=== PATIENT | male | born 1960 | race Hispanic/Latino ===

== ENCOUNTER 2019-01-15 10:24 | Emergency (ER) | payer OTHER, SELFPAY ==
[2019-01-15] MEDS ORDERED: ATIVAN IV STA (11:13)
[2019-01-15] MEDS ORDERED: XYLOCAINE CARDIAC IV ONE (11:13)
[2019-01-15] MEDS ORDERED: TORADOL IV ONE (11:13)
--- NOTE | 2019-01-15 11:20 | Emergency Department Report ---
ED General Adult HPI - General Chief complaint: Fall Stated complaint: BACK PAIN Time Seen by Provider: 01/15/19 10:59 Source: patient, EMS (ems notes not available at time of chart dictation), RN notes reviewed Mode of arrival: Stretcher Limitations: Physical Limitation - History of Present Illness Initial comments: This is a 58-year-old gentleman. The patient is not known to this provider previously. The patient presents to the emergency room with the complaint of right posterior hamstring pain, after mechanical slip, fall 3 days ago while at work. Patient reports being on the second rung from the floor on a ladder this past Tuesday, 3 days ago, reports slipping, and having a left-sided his body hit the wall. He reports that his right knee hit the wall first, that his right thigh, then right thorax, and an shoulder. He did not hit his head. He did not hit his neck. 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 He reports walking around over the weekend, although with some difficulty, secondary to right posterior hamstring pain. He presents to the ER today with with worsened pain, mostly on her right lateral hip, and right posterior hamstring. This pain is burning, aching, crampy and sharp, constant, worsens with palpation, range of motion, decreases with rest, and radiates distally. He makes no complaint of headache, neck pain, chest pain, abdominal pain, shortness of breath, he denies left lower extremity pain, and he makes no complaint of bladder or bowel retention or incontinence or saddle anesthesia. He reports that he was able to walk yesterday. He is difficulty weightbearing today secondary to pain. -: Gradual, days(s) Location: right, lower extremity Radiation: extremity Severity scale (0 -10): 9 Quality: aching Consistency: constant Improves with: rest Worsens with: movement - Related Data Previous Rx's Medication Instructions Recorded Last Taken Type Acetaminophen [Tylenol Arthritis] 650 mg PO Q6HR PRN #30 tablet.er 01/15/19 Unknown Rx Ibuprofen [Motrin] 600 mg PO Q8H PRN #30 tablet 01/15/19 Unknown Rx Methocarbamol [Robaxin TAB] 1,500 mg PO TID PRN #30 tab 01/15/19 Unknown Rx Allergies Allergy/AdvReac Type Severity Reaction Status Date / Time No Known Allergies Allergy Unverified 04/07/15 11:50 ED Review of Systems ROS: Stated complaint: BACK PAIN Other details as noted in HPI Constitutional: denies: fever Eyes: denies: eye discharge ENT: denies: epistaxis Respiratory: denies: cough Cardiovascular: denies: chest pain Genitourinary: denies: dysuria Musculoskeletal: arthralgia, myalgia Neurological: denies: weakness, numbness, paresthesias Psychiatric: anxiety ED Past Medical Hx - Past Medical History Previous Medical History?: Yes Additional medical history: Left inguinal hernia - Social History Smoking Status: Never Smoker Substance Use Type: None - Medications Home Medications: Home Medications Medication Instructions Recorded Confirmed Last Taken Type Acetaminophen [Tylenol Arthritis] 650 mg PO Q6HR PRN #30 tablet.er 01/15/19 Unknown Rx Ibuprofen [Motrin] 600 mg PO Q8H PRN #30 tablet 01/15/19 Unknown Rx Methocarbamol [Robaxin TAB] 1,500 mg PO TID PRN #30 tab 01/15/19 Unknown Rx ED Physical Exam - General Limitations: Physical Limitation General appearance: alert, anxious - Head Head exam: Present: atraumatic, normocephalic - Eye Eye exam: Present: normal appearance, EOMI. Absent: nystagmus - ENT ENT exam: Present: normal exam, normal orophraynx, mucous membranes moist, normal external ear exam - Neck Neck exam: Present: normal inspection, full ROM. Absent: tenderness, meningismus - Respiratory Respiratory exam: Present: normal lung sounds bilaterally. Absent: respiratory distress - Cardiovascular Cardiovascular Exam: Present: regular rate, normal rhythm, normal heart sounds. Absent: bradycardia, tachycardia, irregular rhythm, systolic murmur, diastolic murmur, rubs, gallop - GI/Abdominal GI/Abdominal exam: Present: soft. Absent: distended, tenderness, guarding, rebound, rigid, pulsatile mass - Rectal Rectal exam: Present: deferred - Extremities Exam Extremities exam: Present: normal inspection, full ROM, tenderness (there is right posterior hamstring tenderness. The muscular compartments are soft. There is no redness, pus or streaking), other (2+ pulses noted in the bilateral upper, lower extremities. Compartments soft. No long bony tenderness. The pelvis is stable.). Absent: pedal edema, joint swelling, calf tenderness - Back Exam Back exam: Present: normal inspection, full ROM. Absent: tenderness, CVA tenderness (R), paraspinal tenderness, vertebral tenderness - Neurological Exam Neurological exam: Present: alert (5/5 strength bilateral plantar flexors, plantar extenders, 5 out of 5 strength bilateral extensor hallucis longus. Downgoing plantar reflexes bilaterally.), other (Extraocular movements intact. Tongue midline. No facial droop. Facial sensation intact to light touch in the V1, V2, V3 distribution bilaterally. 5 and 5 strength in 4 extremities.. Sensation is intact to light touch in 4 extremities.). Absent: motor sensory deficit - Psychiatric Psychiatric exam: Present: anxious - Skin Skin exam: Present: warm, dry, intact, normal color. Absent: rash ED Course Vital Signs 01/15/19 01/15/19 01/15/19 10:36 10:39 10:45 Temperature 97.3 F L Pulse Rate 73 Respiratory 18 Rate Blood Pressure 112/73 Blood Pressure 106/78 [Left] O2 Sat by Pulse 99 99 97 Oximetry 01/15/19 01/15/19 01/15/19 11:00 11:15 11:30 Temperature Pulse Rate Respiratory Rate Blood Pressure 120/66 122/73 129/73 Blood Pressure [Left] O2 Sat by Pulse 97 94 95 Oximetry 01/15/19 01/15/19 01/15/19 11:45 12:00 12:15 Temperature Pulse Rate 61 57 L Respiratory 16 21 Rate Blood Pressure 125/85 131/81 130/76 Blood Pressure [Left] O2 Sat by Pulse 92 96 94 Oximetry 01/15/19 12:30 Temperature Pulse Rate 52 L Respiratory 20 Rate Blood Pressure 123/70 Blood Pressure [Left] O2 Sat by Pulse 92 Oximetry - Reevaluation(s) Reevaluation #1: 01/15/19 11:21 Differential diagnosis, including but not limited to: Sprain, strain, fracture, dislocation Assessment and plan: 58-year-old gentleman status post reported mild minor blunt traumatic injury while at work 3 days ago, now with worsening pain, which is reproducible, without evidence of neurovascular disruption. Patient likely experiencing the natural history of mild blunt trauma. I have recommended that patient contact his employer or baggage handling supervisor, and report the incident, as this is a work-related incident. We will treat the patient's pain aggressively. I doubt a fracture, or dislocation, we will obtain plain films of the pelvis and femur. Patient will be given crutches, weightbearing as tolerated in the right lower extremity, and he will need to follow up with outpatient physical therapy, physiatry, for further evaluation, management. Reevaluation #2: 01/15/19 12:29 X-ray of the right femur, pelvis, negative for acute disease. Patient sleeping comfortably in no acute distress. Vital signs remained stable. Patient will be discharged at this point in time. ED Medical Decision Making - Lab Data Vital Signs 01/15/19 10:39 Temperature 97.3 F L Pulse Rate 73 Respiratory 18 Rate Blood Pressure 106/78 [Left] O2 Sat by Pulse 99 Oximetry Critical care attestation.: If time is entered above; I have spent that time in minutes in the direct care of this critically ill patient, excluding procedure time. ED Disposition Clinical Impression: Right hamstring muscle strain Disposition: DC-01 TO HOME OR SELFCARE Is pt being admited?: No Does the pt Need Aspirin: No Condition: Stable Instructions: Muscle Strain (ED) Additional Instructions: Rest, avoid heavy lifting, and avoid strenuous physical activities. Take the pain medications as needed/directed. Rest, and avoid heavy lifting, strenuous physical activities. Weightbearing as tolerated, use the crutches as directed. I recommend that patient contact his baggage handling supervisor or employer, and reports the incident since the patient reports that this incident happened at work. Patient will likely need to participate in rehabilitation, physical therapy of the affected lower extremity, and therefore may be entitled to Worker's Compensation. However, the patient needs to discuss this with his employer to clarify whether or not he is entitled to Worker's Compensation benefits. Alternatively, the patient may follow-up with the listed pain specialist or orthopedist's, full referral to outpatient physical therapy. Pain typically gets worse before gets better, and painful likely take weeks to months to completely improved, resolved. Prescriptions: Ibuprofen [Motrin] 600 mg PO Q8H PRN #30 tablet PRN Reason: Pain Methocarbamol [Robaxin TAB] 1,500 mg PO TID PRN #30 tab PRN Reason: Pain Acetaminophen [Tylenol Arthritis] 650 mg PO Q6HR PRN #30 tablet.er PRN Reason: Pain Referrals: MCKAYLA TOMAS MD [Staff Physician] - 3-5 Days VELMA GREENFIELD MD [Staff Physician] - 3-5 Days [facility] [Provider Group] - 3-5 Days Forms: Work/School Release Form(ED)
--- NOTE | 2019-01-15 12:53 | XRay Report ---
AP PELVIS: HISTORY: pain. AP view of the pelvis shows normal pelvic contour and soft tissues. The hips are symmetric and within normal limits as are the sacroiliac joints. IMPRESSION: Normal pelvis.
--- NOTE | 2019-01-15 12:53 | XRay Report ---
RIGHT FEMUR: HISTORY: Leg pain fall. AP and lateral views of the femur demonstrate normal mineralization and contours for this patient's age. No destructive changes are noted and the adjacent soft tissues are normal. IMPRESSION: Normal right femur.
[2019-01-16 18:46] VITALS: BP 123/70
== END 2019-01-15 13:00 | disposition home or self-care (01) ==
LOC: ED 10:24
DX: M79.18 Myalgia, other site (principal); T14.8XXA Other injury of unspecified body region, initial encounter; W19.XXXA Unspecified fall, initial encounter; Y93.89 Activity, other specified; Y92.89 Other specified places as the place of occurrence of the external cause; Y99.8 Other external cause status
CPT/HCPCS: 72170; 73552; 96374; 96375; 99284; J1885; J2001; J2060

== ENCOUNTER 2019-02-22 08:39 | Emergency (ER) | payer OTHER, SELFPAY ==
[2019-02-22 08:48] VITALS: BP 125/71
[2019-02-22] MEDS ORDERED: TORADOL IM ONE (09:15)
--- NOTE | 2019-02-22 09:23 | Emergency Department Report ---
ED Lower Extremity HPI - General Chief Complaint: Extremity Injury, Lower Stated Complaint: R LEG PAIN/R HIP PAIN Time Seen by Provider: 02/22/19 09:09 Source: patient Mode of arrival: Ambulatory Limitations: No Limitations - History of Present Illness Initial Comments: Patient is 58 years old male with no significant past medical history. Patient presented to the ER complaining of right hip and right thigh pain since his last fall. Patient stated that he was seen here and evaluated. I reviewed his record patient had a right hip x-ray and right femur x-ray which was normal. Patient stated that pain is not going away. Patient did not follow-up with primary care physician. Patient currently denying any weakness, numbness or tingling sensation. No bowel or bladder incontinence. No fever. Patient denied chest pain. MD Complaint: hip injury, thigh injury - Related Data Previous Rx's Medication Instructions Recorded Last Taken Type Acetaminophen [Tylenol Arthritis] 650 mg PO Q6HR PRN #30 tablet.er 01/15/19 Unknown Rx Ibuprofen [Motrin] 600 mg PO Q8H PRN #30 tablet 01/15/19 Unknown Rx methOCARBAMOL [Robaxin TAB] 1,500 mg PO TID PRN #30 tab 01/15/19 Unknown Rx Allergies Allergy/AdvReac Type Severity Reaction Status Date / Time No Known Allergies Allergy Verified 02/22/19 08:48 ED Review of Systems ROS: Stated complaint: R LEG PAIN/R HIP PAIN Other details as noted in HPI Comment: All other systems reviewed and negative Constitutional: denies: chills, fever Respiratory: denies: cough, orthopnea, shortness of breath, SOB with exertion Cardiovascular: denies: chest pain, palpitations Gastrointestinal: denies: abdominal pain, nausea, vomiting ED Past Medical Hx - Past Medical History Previous Medical History?: Yes Additional medical history: Left inguinal hernia - Surgical History Past Surgical History?: Yes Additional Surgical History: hernia - Social History Smoking Status: Former Smoker Substance Use Type: None - Medications Home Medications: Home Medications Medication Instructions Recorded Confirmed Last Taken Type Acetaminophen [Tylenol Arthritis] 650 mg PO Q6HR PRN #30 tablet.er 01/15/19 Unknown Rx Ibuprofen [Motrin] 600 mg PO Q8H PRN #30 tablet 01/15/19 Unknown Rx methOCARBAMOL [Robaxin TAB] 1,500 mg PO TID PRN #30 tab 01/15/19 Unknown Rx ED Physical Exam - General Limitations: No Limitations General appearance: alert, in no apparent distress - Head Head exam: Present: atraumatic, normocephalic, normal inspection - Eye Eye exam: Present: normal appearance, PERRL - ENT ENT exam: Present: normal exam, normal orophraynx, mucous membranes moist - Neck Neck exam: Present: normal inspection, full ROM. Absent: tenderness, meningismus, lymphadenopathy, thyromegaly - Respiratory Respiratory exam: Present: normal lung sounds bilaterally - Cardiovascular Cardiovascular Exam: Present: regular rate, normal heart sounds - GI/Abdominal GI/Abdominal exam: Present: soft. Absent: distended, tenderness, guarding, rebound - Extremities Exam Extremities exam: Present: normal inspection, full ROM, tenderness (tenderness to the right gluteal region.), normal capillary refill. Absent: calf tenderness - Back Exam Back exam: Present: normal inspection - Neurological Exam Neurological exam: Present: alert, CN II-XII intact, normal gait - Skin Skin exam: Present: warm, intact, normal color ED Course Vital Signs 02/22/19 08:42 Temperature 97.2 F L Pulse Rate 98 H Respiratory 16 Rate Blood Pressure 125/71 O2 Sat by Pulse 99 Oximetry Critical care attestation.: If time is entered above; I have spent that time in minutes in the direct care of this critically ill patient, excluding procedure time. ED Disposition Clinical Impression: Right hip pain Disposition: DC-01 TO HOME OR SELFCARE Is pt being admited?: No Condition: Stable Instructions: Contusion in Adults (ED) Referrals: TRISH PERSAUD MD [Primary Care Provider] - 3-5 Days Forms: Work/School Release Form(ED)
== END 2019-02-22 09:34 | disposition home or self-care (01) ==
LOC: ED 08:39
DX: M25.551 Pain in right hip (principal); M79.651 Pain in right thigh; Z87.891 Personal history of nicotine dependence
CPT/HCPCS: 96372; 99282; J1885

== ENCOUNTER 2019-03-15 12:04 | Emergency (ER) | payer OTHER, SELFPAY ==
--- NOTE | 2019-03-15 12:28 | Emergency Department Report ---
Blank Doc - Documentation Documentation: This is a 58-year-old male that presents with acute on chronic right hip pain. Stated had injury 2 months ago. Denies any new injuries. Stated has not followed up with orthopedic. Xrays has been done. This initial assessment/diagnostic orders/clinical plan/treatment(s) is/are subject to change based on patient's health status, clinical progression and re- assessment by fellow clinical providers in the ED. Further treatment and workup at subsequent clinical providers discretion. Patient/guardians urged not to elope from the ED as their condition may be serious if not clinically assessed and managed. Initial orders include: 1- Patient sent to [facility] for further evaluation and treatment
[2019-03-15 12:29] VITALS: BP 143/85
[2019-03-15] MEDS ORDERED: DECADRON IM ONE (13:48)
[2019-03-15] MEDS ORDERED: NORCO 5/325 PO ONE (13:49)
--- NOTE | 2019-03-15 13:49 | Emergency Department Report ---
ED Lower Extremity HPI - General Chief Complaint: Extremity Injury, Lower Stated Complaint: R SIDE LEG/HIP PAIN Time Seen by Provider: 03/15/19 12:26 Source: patient Mode of arrival: Ambulatory Limitations: No Limitations - History of Present Illness Initial Comments: This is a 58-year-old male presents to the emergency room for right hip pain radiating to calf for 2 months. Patient states he was seen here and referred to an orthopedic surgeon in [place] who can't see him until 2 months. Patient states he is unable to sit right buttock due to pain. He is currently use crutches to ambulate. He reports pain as sharp radiating pain. He denies recent injury, swelling, warmth to area, weakness, change in urinary or bowel pattern. MD Complaint: leg injury Onset/Timin -: month(s) Injury: Hip: Right, Leg: Right Type of Injury: unknown Place: home Severity: severe Severity scale (0 -10): 10 Improves With: nothing Worsens With: weight bearing, other (sitting) Context: walking Associated Symptoms: numbness, tingling, able to partially bear weight, ambulatory. denies: snap/pop sensation, swelling, unable to bear weight Treatments Prior to Arrival: NSAIDS, other (heat therapy) - Related Data Previous Rx's Medication Instructions Recorded Last Taken Type Acetaminophen [Tylenol Arthritis] 650 mg PO Q6HR PRN #30 tablet.er 01/15/19 Unknown Rx Ibuprofen [Motrin] 600 mg PO Q8H PRN #30 tablet 01/15/19 Unknown Rx methOCARBAMOL [Robaxin TAB] 1,500 mg PO TID PRN #30 tab 01/15/19 Unknown Rx Ondansetron [Zofran Odt] 4 mg PO Q8HR PRN #14 tab.rapdis 02/22/19 Unknown Rx Prednisone [predniSONE 10 mg 10 mg PO .TAPER #1 tab.ds.pk 02/22/19 Unknown Rx (6-Day Pack, 21 Tabs)] traMADol [Ultram] 50 mg PO Q6HR PRN #14 tablet 02/22/19 Unknown Rx Naproxen [Naprosyn] 500 mg PO BID PRN #20 tablet 03/15/19 Unknown Rx methOCARBAMOL [Robaxin TAB] 500 mg PO BID PRN #20 tab 03/15/19 Unknown Rx methylPREDNISolone [Medrol 4MG 4 mg PO DAILY #1 tab.ds.pk 03/15/19 Unknown Rx DOSEPAK (21 tabs)] Allergies Allergy/AdvReac Type Severity Reaction Status Date / Time No Known Allergies Allergy Verified 02/22/19 08:48 ED Review of Systems ROS: Stated complaint: R SIDE LEG/HIP PAIN Other details as noted in HPI Constitutional: denies: chills, fever Respiratory: denies: cough, shortness of breath, wheezing Cardiovascular: denies: chest pain, palpitations Gastrointestinal: denies: abdominal pain, nausea, diarrhea Musculoskeletal: arthralgia (right hip radiating to calf). denies: back pain, joint swelling Skin: denies: rash, lesions Neurological: denies: headache, weakness, paresthesias Psychiatric: denies: anxiety, depression ED Past Medical Hx - Past Medical History Additional medical history: Left inguinal hernia - Surgical History Additional Surgical History: hernia - Social History Smoking Status: Current Every Day Smoker Substance Use Type: None - Medications Home Medications: Home Medications Medication Instructions Recorded Confirmed Last Taken Type Acetaminophen [Tylenol Arthritis] 650 mg PO Q6HR PRN #30 tablet.er 01/15/19 Unknown Rx Ibuprofen [Motrin] 600 mg PO Q8H PRN #30 tablet 01/15/19 Unknown Rx methOCARBAMOL [Robaxin TAB] 1,500 mg PO TID PRN #30 tab 01/15/19 Unknown Rx Ondansetron [Zofran Odt] 4 mg PO Q8HR PRN #14 tab.rapdis 02/22/19 Unknown Rx Prednisone [predniSONE 10 mg 10 mg PO .TAPER #1 tab.ds.pk 02/22/19 Unknown Rx (6-Day Pack, 21 Tabs)] traMADol [Ultram] 50 mg PO Q6HR PRN #14 tablet 02/22/19 Unknown Rx Naproxen [Naprosyn] 500 mg PO BID PRN #20 tablet 03/15/19 Unknown Rx methOCARBAMOL [Robaxin TAB] 500 mg PO BID PRN #20 tab 03/15/19 Unknown Rx methylPREDNISolone [Medrol 4MG 4 mg PO DAILY #1 tab.ds.pk 03/15/19 Unknown Rx DOSEPAK (21 tabs)] ED Physical Exam - General Limitations: No Limitations General appearance: alert, in no apparent distress - Respiratory Respiratory exam: Present: normal lung sounds bilaterally. Absent: respiratory distress - Cardiovascular Cardiovascular Exam: Present: regular rate, normal rhythm. Absent: systolic murmur, diastolic murmur, rubs, gallop - GI/Abdominal GI/Abdominal exam: Present: soft, normal bowel sounds - Expanded Lower Extremity Exam Right Hip exam: Present: full ROM, pelvic stability. Absent: tenderness, swelling, abrasion, laceration, ecchymosis, deformity, crepidus, dislocation, erythema, external rotation, internal rotation, shortening Upper Leg exam: Present: normal inspection, full ROM Knee exam: Present: normal inspection, full ROM Lower Leg exam: Present: normal inspection, full ROM Ankle exam: Present: normal inspection, full ROM Foot/Toe exam: Present: normal inspection, full ROM Neuro vascular tendon exam: Present: no vascular compromise Gait: Positive: observed and limited by pain - Neurological Exam Neurological exam: Present: alert, oriented X3 - Psychiatric Psychiatric exam: Present: normal affect, normal mood - Skin Skin exam: Present: warm, dry, intact, normal color. Absent: rash ED Course Vital Signs 03/15/19 03/15/19 12:26 13:57 Temperature 97.6 F Pulse Rate 80 Respiratory 20 16 Rate Blood Pressure 143/85 O2 Sat by Pulse 97 Oximetry ED Lower Extremity MDM - Medical Decision Making Patient was examined by me. Vitals are normal and patient is in no acute distress. Patient had normal x-rays of pelvis and right femur 01/15/19 in this ER and treated for muscle strain. On assessment patient had positive straight leg test on right and findings are susceptible of sciatica without back pain. He was given norco and dexamethasone while in the ER. Start naproxen, robaxin, and medrol dose pack for pain. Given referral to Dr. Tinajero, Orthopedic surgeon for follow up. Plan discussed with patient to discharge home and treat outpatient. He agrees with ER plan. Patient discharged home in stable condition. Follow up with PCP in 2-3 days. Critical care attestation.: If time is entered above; I have spent that time in minutes in the direct care of this critically ill patient, excluding procedure time. ED Disposition Clinical Impression: Sciatica of right side Disposition: DC-01 TO HOME OR SELFCARE Is pt being admited?: No Does the pt Need Aspirin: No Condition: Stable Instructions: Sciatica (ED) Additional Instructions: Rest Use ice or heat on affected area for 20 minutes and off for 2 hours. Take pain medication as needed for pain. Don't drive or operate heavy machinery while taking muscle relaxers because they may cause drowsiness. Follow up with Primary Care Provider in 2-3 days. Prescriptions: methylPREDNISolone [Medrol 4MG DOSEPAK (21 tabs)] 4 mg PO DAILY #1 tab.ds.pk Naproxen [Naprosyn] 500 mg PO BID PRN #20 tablet PRN Reason: Pain, Moderate (4-6) methOCARBAMOL [Robaxin TAB] 500 mg PO BID PRN #20 tab PRN Reason: Muscle Spasm Referrals: MCKAYLA TINAJERO MD [Staff Physician] - 3-5 Days [facility] [Provider Group] - 3-5 Days ABRAHAM OLSON DO [Staff Physician] - 3-5 Days Forms: Work/School Release Form(ED) Time of Disposition: 14:51
== END 2019-03-15 15:10 | disposition home or self-care (01) ==
LOC: ED 12:04
DX: M54.31 Sciatica, right side (principal); F17.200 Nicotine dependence, unspecified, uncomplicated
CPT/HCPCS: 96372; 99282; J1100